=== PATIENT | female | born 1950 | race Hispanic/Latino ===

== ENCOUNTER → 2016-09-10 | Outpatient (CLI) | payer OTHER ==
[2016-09-10 10:19] LABS: CHOL/HDL RATIO 3.51 RATIO (0-4.0); LDL CHOLESTEROL,CALCULATED 80.6 mg/dL
== END ==
LOC: LAB 05:56
PROVIDERS: ATTEND Family Medicine
DX: E03.9 Hypothyroidism, unspecified (principal); E78.5 Hyperlipidemia, unspecified
CPT/HCPCS: 36415; 80061; 84439; 84443